=== PATIENT | male | born 1975 | race Two or more races ===

== ENCOUNTER → 2019-09-19 | Outpatient (CLI) | payer OTHER ==
--- NOTE | 2019-09-19 19:41 | REP ---
Chest x-ray: Two views. History: Wheezing and cough. No comparison chest x-ray. Findings: The lungs are well inflated and free of infiltrate. The pleural angles are sharp. Heart size is normal. Pulmonary vasculature is not increased. No bony abnormalities seen. Impression: Negative chest x-ray. Electronically Signed by Diogo Tyler MD 09/19/2019 07:32 P
== END ==
LOC: M LRY 19:10
PROVIDERS: ATTEND Physician Assistant
DX: R06.2 Wheezing (principal); R05 Cough
CPT/HCPCS: 71046; 94640; G0463